=== PATIENT | female | born 1940 | race Caucasian/White ===

== ENCOUNTER → 2016-11-10 | Day surgery (SDC) | payer MEDICARE ==
[~2016-11-10] MED LIST: ADVAIR 250-501 EAC1 IH; ALBUTEROL1.25 MG/3 INH; ALDACTONE25 MG PO; ASPIRIN81 M2 PO; AZOPT5 ML OS; B COMPLEX1 CA1 PO; BENTYL20 MG PO; BONIVA150 MG PO; BYSTOLIC10 MG PO; DELTASONE20 MG PO; DILANTIN KAPSE100 MG PO; FIBERCON625 MG PO; HYDROCODON-ACE1 EAC5 PO; HYDROCODON-ACE1 EAC7 PO; JANUVIA PO; JANUVIA25 MG PO; LIPITOR80 MG PO; MELATONIN10 M2 PO; NEURONTIN100 MG PO; NORVASC2.5 MG PO; OXYCODON HCL-AP1 TA2 PO; PROBIOTIC1 EAC2 PO; PROTONIX PO; REQUIP0.5 MG PO; SYMBICORT INH; TEMAZEPAM PO; TRILIPIX135 MG PO; ULTRAM PO; VENTOLIN5 MG/ML INH; VITAMIN B122500 MCG; XOPENEX1.25 MG/0. INH; ZANTAC300 MG PO; ZOFRAN8 MG PO; ZOLOFT PO; [UNRECOGNIZED DRUG - OTHER] PO
--- NOTE | ~2016-11-10 | OR ---
Unit #: [id number] #: [id number] Patient: DANNIE ROSARIO [id number] [address] [address] [id number] O MR#: [id number] NAME: DANNIE ROSARIO ROOM: Date of Procedure: 11/10/2016 Admission Date: 11/10/2016 Surgeon: Swapnil Casey M.D. : 1940 Attending Physician: Kendall Casey Primary Care Physician: Navneet Zaman M.D. [facility] CENTER OPERATIVE NOTE PROCEDURE PERFORMED Cervical epidural steroid injection under x-ray guided needle placement with provider administered conscious sedation. PREOPERATIVE DIAGNOSES 1. Acute cervical radiculitis. 2. Spinal stenosis, cervical spine. 3. Degenerative joint disease, cervical spine. 4. Degenerative disk disease, cervical spine. 5. Posterior headache right greater than left. INDICATIONS FOR PROCEDURE The patient presents today with longstanding history of chronic cervical radicular pain secondary to her underlying degenerative processes. She also did have a component of cervical facet arthralgia. However, this component did not respond to cervical facet injections. Her cervical radiculitis and posterior headache have been previously responded to cervical epidural steroid injections. Her most recent episode of cervical epidural injections being approximately 6 months ago. She presents today having exacerbation which has failed to her usual and ongoing continuous conservative measures. After discussing risks and benefits of proceeding today with cervical approach epidural steroid injection with return date of 11/29/2016 for potential repeat cervical and posterior occipital block, the patient agreed this would be the appropriate course of action. DESCRIPTION OF PROCEDURE She was then taken to the operating room, where she was prepped and draped in sterile manner. Standard monitors were applied. She was sedated with 2 mg of IV Versed and cervical epidural space was accessed at the C3-C4 level using loss of resistance technique and x-ray guidance. Needle placement was confirmed with injection of 2 mL of Omnipaque. There was good superior and inferior flow at the C3-C4 level. Following successful needle placement confirmation with an x-ray time of 2 seconds, the patient received an injectate containing 4 mL normal saline and 80 mg of methylprednisolone. She tolerated this procedure well. She was discharged home with followup instructions, which were described above. Dictated by... Tim Bob/everardo Unit #: [id number] #: [id number] Patient: DANNIE ROSARIO TD: 11/11/2016 05:04 JOB #: [id number] [facility]ENTER OPERATIVE NOTE Page 1 of 1 X Kendall Casey MD PROCEDURE OPERATIVE NOTE
== END | disposition home or self-care (01) ==
LOC: CCSC 11:00
DX: M47.22 Other spondylosis with radiculopathy, cervical region (principal); M50.10 Cervical disc disorder with radiculopathy, unspecified cervical region; M48.02 Spinal stenosis, cervical region; R51 Headache; J44.9 Chronic obstructive pulmonary disease, unspecified; Z90.710 Acquired absence of both cervix and uterus
CPT/HCPCS: 82947; J1040; J2250

== ENCOUNTER → 2016-11-29 | Day surgery (SDC) | payer MEDICARE ==
--- NOTE | ~2016-11-29 | OR ---
Unit #: [id number] #: [id number] Patient: DANNIE ROSARIO [id number] [address] [place], [place] [address] [id number] O MR#: [id number] NAME: DANNIE ROSARIO ROOM: Date of Procedure: 11/29/2016 Admission Date: 11/29/2016 Surgeon: Swapnil Casey M.D. : 1940 Attending Physician: Swapnil Casey M.D. Referring Physician: Swapnil Casey M.D. Primary Care Physician: Navneet Zaman M.D. SUR[facility]ERY CENTER OPERATIVE NOTE PROCEDURE PERFORMED Cervical epidural steroid injection under x-ray guided needle placement with provider administered conscious sedation. PREOPERATIVE DIAGNOSES 1. Cervical radiculitis. 2. Spinal stenosis, cervical spine. 3. Degenerative joint disease, cervical spine. 4. Degenerative disk disease, cervical spine. INDICATIONS FOR PROCEDURE The patient presents today with longstanding history of chronic cervical radicular pain secondary to her underlying degenerative processes. She is generally fairly well managed medically with ongoing continuous conservative measures; however, she does occasionally experience acute exacerbations, which to date have only responded to epidural steroid injections. She is currently experiencing just such an exacerbation which had broken through her ongoing continuous conservative measures. Her usual amount of relief from cervical epidural steroid injections are approximately 80% for approximately 8 to 10 weeks. After discussing risks and benefits of proceeding today with cervical approach epidural steroid injection as well as an offer to return to this clinic as early as 03/16/2017 if we could be of further service to her, the patient agreed this would be the appropriate course of action. DESCRIPTION OF PROCEDURE She was then taken to the operating room, where she was prepped and draped in a sterile manner. Standard monitors were applied. She was sedated with 1 mg of IV Versed initially and required additional 1 mg of IV Versed throughout the duration of procedure. The cervical epidural space was accessed at the C4-C5 level using loss of resistance technique and x-ray guidance. Needle placement was confirmed with injection of 2 mL of Omnipaque. There was good superior and inferior flow at this C4-C5 needle placement. Following successful needle placement confirmation, which required an x-ray time of 2 seconds, the patient received an injectate containing 4 mL normal saline and 80 mg of methylprednisolone. She tolerated this procedure well. She was discharged home with followup instructions, which are described above. Dictated by... Swapnil Casey M.D. Unit #: [id number] #: [id number] Patient: DANNIE ROSARIO G/seferinol TD: 11/30/2016 02:17 JOB #: [id number] [facility] OPERATIVE NOTE Page 1 of 1 X Kendall Casey MD X PROCEDURE OPERATIVE NOTE
== END | disposition home or self-care (01) ==
LOC: CCSC 09:34
DX: M47.22 Other spondylosis with radiculopathy, cervical region (principal); M50.10 Cervical disc disorder with radiculopathy, unspecified cervical region; M48.02 Spinal stenosis, cervical region; J44.9 Chronic obstructive pulmonary disease, unspecified; Z90.710 Acquired absence of both cervix and uterus; Z88.1 Allergy status to other antibiotic agents
CPT/HCPCS: 82947; J1040; J2250